=== PATIENT | male | born 1985 | race Caucasian/White ===

== ENCOUNTER 2018-02-09 18:28 | Emergency (ER) | END 2018-02-09 20:56 | disposition home or self-care (01) ==

== ENCOUNTER 2018-03-29 00:50 | Emergency (ER) | END 2018-03-29 03:30 | disposition home or self-care (01) ==

== ENCOUNTER 2018-04-08 22:39 | Emergency (ER) | END 2018-04-09 01:35 | disposition home or self-care (01) ==